=== PATIENT | female | born 1955 | race Caucasian/White ===

== ENCOUNTER 2021-04-10 19:10 | Inpatient (IN) ==
[2021-04-10] MEDS ORDERED: PANTOPRAZOLE 40 MG VIAL IV STA (19:33)
[2021-04-10] MEDS ORDERED: PIPERACILLIN/TAZOBACTAM 3,375 MG in SODIUM CHLORIDE 0.9% 100 ML IV STA (19:33)
[2021-04-10] MEDS ORDERED: SODIUM CHLORIDE 0.9% 1,000 ML IV STA ×2 (19:33→21:57)
[2021-04-10] MEDS ORDERED: ONDANSETRON 4 MG/2 ML VIAL IV STA (19:33)
[2021-04-10 20:01] LABS: Basophils % 0.1 % (0.0-0.8); Eosinophils % 0.2 % (0.00-10.9); Hematocrit 34.8 VOL% (35.7-47.0); Hemoglobin 11.5 GM/DL (12.0-16.0); Immature Granulocytes % 0.7 %; Immature Granulocytes Absolute 0.06 #; Lymphocytes # 0.3 10*3/uL (1.4-4.0); Lymphocytes % 3.5 % (21.3-54.2); Mean Corpuscular Volume 93.8 FL (87-102); Mean Platelet Volume 9.6 FL (9.6-12.0); Monocytes % 5.9 % (1.7-12.7); Neutrophils % 89.6 % (38.7-73.9); Platelet Count 110 T/CUMM (130-400); Red Blood Count 3.71 MC/CUMM (3.8-5.5); Red Cell Distribution Width 14.2 % (9.3-17.3); White Blood Count 8.1 T/CUMM (4-12)
[2021-04-10 20:12] LABS: Blood, Urine Negative (Negative); Glucose,Urine (UA) Negative (Negative); Ketones,Urine Negative (Negative); Mucus,Urine Occasional /LPF (Occasional); Nitrite,Urine Positive (Negative); Protein,Urine Negative; RBC,Urine 5 /HPF (0-4); Squamous Epithelial Cell,Urine Few /HPF (0-10); Urine Appearance CLEAR (Clear); Urine Color Amber (Yellow); Urine Specific Gravity 1.038 (1.001-1.035)
[2021-04-10 20:15] LABS: Bilirubin,Urine Small mg/dL (Negative)
[2021-04-10 20:19] LABS: Alanine Aminotransferase 200 U/L (13-56); Albumin 3.3 G/DL (3.4-5.0); Alkaline Phosphatase 157 U/L (45-117); Amylase 10 U/L (25-115); Aspartate Amino Transferase 220 U/L (0-37); Blood Urea Nitrogen 21 MG/DL (7-18); Calcium 9.6 MG/DL (8.5-10.1); Carbon Dioxide 24 MMOL/L (21-32); Estimated Glom Filtration Rate 66 ML/MIN; Glucose 87 MG/DL (74-106); Osmolality,Calculated 278.5 MOS/KG (273-304); Potassium 3.7 MMOL/L (3.5-5.1); Sodium 139 MMOL/L (136-145); Total Protein 6.7 G/DL (6.4-8.2)
[2021-04-10] MEDS ORDERED: MAGNESIUM SULF RIDER 2 GM/50 ML PREMIX IV STA (20:23)
[2021-04-10] MEDS ORDERED: NICOTINE 21 MG/24 HR PATCH TRANSDERM PRN (22:08)
[2021-04-10] MEDS ORDERED: GLUCAGON 1 MG VIAL IM PRN (22:08)
[2021-04-10] MEDS ORDERED: ONDANSETRON 4 MG/2 ML VIAL IV PRN (22:08)
[2021-04-10] MEDS ORDERED: guaiFENesin/DM ER 600-30 MG TABLET PO PRN (22:08)
[2021-04-10] MEDS ORDERED: ZALEPLON 5 MG CAPSULE PO PRN (22:08)
[2021-04-10] MEDS ORDERED: MORPHINE 4 MG/1 ML VIAL IV PRN (22:08)
[2021-04-10] MEDS ORDERED: DEXTROSE 50% 25 GM/50 ML VIAL IV PRN (22:08)
[2021-04-10] MEDS ORDERED: hydrALAZINE 20 MG/1 ML VIAL IV PRN (22:08)
[2021-04-10] MEDS ORDERED: PROMETHAZINE 25 MG/1 ML VIAL IM PRN (22:08)
[2021-04-10 23:44] LABS: Hepatitis B Core IgM Quant < 0.05 Index; Hepatitis B Surface Ag Quant < 0.10 Index; Hepatitis B Surface Ag Result Non-Reactive (NonReactive); Hepatitis C Virus Ab Result Non-Reactive (NonReactive)
[2021-04-11] MEDS: DEXT 5% NACL 0.9% KCL 20 MEQ 20 MEQ/1,000 ML BAG IV SCH (00:12)
[2021-04-11] MEDS: ALBUTEROL/IPRATROPIUM 3 ML NEB RESP TX SCH ×4 (00:21→20:21)
[2021-04-11] MEDS ORDERED: VANCOMYCIN INJ 1,000 MG in SODIUM CHLORIDE 0.9% 250 ML IV SCH (01:00)
[2021-04-11] MEDS: PIPERACILLIN/TAZOBACTAM 3,375 MG in SODIUM CHLORIDE 0.9% 100 ML IV SCH ×3 (04:35→20:12)
[2021-04-11 05:30] LABS: Eosinophils # 0.1 10*3/uL (0.0-0.87); Eosinophils % 1.6 % (0.00-10.9); Hematocrit 32.9 VOL% (35.7-47.0); Hemoglobin 10.7 GM/DL (12.0-16.0); Immature Granulocytes Absolute 0.05 #; Lymphocytes # 0.5 10*3/uL (1.4-4.0); Lymphocytes % 9.3 % (21.3-54.2); Mean Corpuscular HGB Conc 32.5 GM/DL (32-36); Mean Corpuscular Volume 95.6 FL (87-102); Mean Platelet Volume 10.1 FL (9.6-12.0); Monocytes % 5.7 % (1.7-12.7); Neutrophils % 82.4 % (38.7-73.9); Red Blood Count 3.44 MC/CUMM (3.8-5.5); Red Cell Distribution Width 14.4 % (9.3-17.3)
[2021-04-11 05:44] LABS: Platelet Count 93 T/CUMM (130-400); White Blood Count 5.1 T/CUMM (4-12)
[2021-04-11 05:46] LABS: Calcium 9.1 MG/DL (8.5-10.1); Potassium 3.4 MMOL/L (3.5-5.1)
[2021-04-11 05:55] LABS: Albumin 2.8 G/DL (3.4-5.0); Bilirubin,Direct 4.03 MG/DL (0.0-0.20); Bilirubin,Indirect 2.4 MG/DL (0.0-1.0); Bilirubin,Total 6.4 MG/DL (0.2-1.0); Total Protein 5.8 G/DL (6.4-8.2)
[2021-04-11 06:03] LABS: Hypochromasia Slight; Microcytosis Slight; Platelet Estimate Decreased
[2021-04-11] MEDS ORDERED: ENOXAPARIN 40 MG/0.4 ML SYRINGE SUBCUT SCH (09:00)
[2021-04-11] MEDS: PANTOPRAZOLE 40 MG VIAL IV SCH (09:53)
[2021-04-11] MEDS: ATORVASTATIN 10 MG TABLET PO SCH (09:56)
[2021-04-12] MEDS: ALBUTEROL/IPRATROPIUM 3 ML NEB RESP TX SCH ×4 (00:08→19:30)
[2021-04-12] MEDS: DEXT 5% NACL 0.9% KCL 20 MEQ 20 MEQ/1,000 ML BAG IV SCH (02:09)
[2021-04-12] MEDS: PIPERACILLIN/TAZOBACTAM 3,375 MG in SODIUM CHLORIDE 0.9% 100 ML IV SCH ×3 (04:06→21:59)
[2021-04-12 05:40] LABS: Basophils % 0.3 % (0.0-0.8); Eosinophils # 0.1 10*3/uL (0.0-0.87); Eosinophils % 3.2 % (0.00-10.9); Hematocrit 29.7 VOL% (35.7-47.0); Hemoglobin 9.8 GM/DL (12.0-16.0); Immature Granulocytes % 0.6 %; Immature Granulocytes Absolute 0.02 #; Lymphocytes # 0.5 10*3/uL (1.4-4.0); Lymphocytes % 14.9 % (21.3-54.2); Mean Corpuscular Volume 93.4 FL (87-102); Mean Platelet Volume 9.8 FL (9.6-12.0); Monocytes % 6.6 % (1.7-12.7); Neutrophils % 74.4 % (38.7-73.9); Red Blood Count 3.18 MC/CUMM (3.8-5.5); Red Cell Distribution Width 14.5 % (9.3-17.3)
[2021-04-12 05:49] LABS: INR 1.4; PT Patient Result 15.3 SECS (10.5-12.0); Platelet Count 81 T/CUMM (130-400); White Blood Count 3.5 T/CUMM (4-12)
[2021-04-12 05:57] LABS: Albumin 2.6 G/DL (3.4-5.0); Bilirubin,Total 5.6 MG/DL (0.2-1.0); Calcium 8.7 MG/DL (8.5-10.1); Osmolality,Calculated 282.1 MOS/KG (273-304); Potassium 3.5 MMOL/L (3.5-5.1)
[2021-04-12 06:29] LABS: Anisocytosis Slight; Macrocytosis Slight; Platelet Estimate Decreased
[2021-04-12] MEDS ORDERED: LACTATED RINGERS 1,000 ML IV SCH (08:00)
[2021-04-12] MEDS ORDERED: INDOMETHACIN SUPP 50 MG SUPP RECTAL ONE (08:00)
[2021-04-12] MEDS ORDERED: FAMOTIDINE 20 MG/2 ML VIAL IV ONE (08:41)
[2021-04-12] MEDS ORDERED: LIDOCAINE 2% 5 ML VIAL ONE (08:44)
[2021-04-12] MEDS ORDERED: ONDANSETRON 4 MG/2 ML VIAL ONE (08:44)
[2021-04-12] MEDS ORDERED: SUCCINYLCHOLINE 200 MG/10 ML VIAL ONE (08:44)
[2021-04-12] MEDS ORDERED: ROCURONIUM 50 MG/5 ML VIAL IV ONE (08:44)
[2021-04-12] MEDS ORDERED: fentaNYL 100 MCG/2 ML VIAL ONE (08:44)
[2021-04-12] MEDS ORDERED: MIDAZOLAM 2 MG/2 ML VIAL ONE (08:44)
[2021-04-12] MEDS ORDERED: propofoL 200 MG/20 ML VIAL IV ONE (08:44)
[2021-04-12] MEDS ORDERED: SEVOFLURANE 1 UNIT/15 MINUTE INH ONE (10:04)
[2021-04-12] MEDS: ATORVASTATIN 10 MG TABLET PO SCH (12:01)
[2021-04-12] MEDS: PANTOPRAZOLE 40 MG VIAL IV SCH (12:01)
[2021-04-13] MEDS: ALBUTEROL/IPRATROPIUM 3 ML NEB RESP TX SCH ×4 (00:10→20:01)
[2021-04-13] MEDS: DEXT 5% NACL 0.9% KCL 20 MEQ 20 MEQ/1,000 ML BAG IV SCH ×3 (05:35→09:15)
[2021-04-13] MEDS: PIPERACILLIN/TAZOBACTAM 3,375 MG in SODIUM CHLORIDE 0.9% 100 ML IV SCH ×3 (05:36→22:12)
[2021-04-13] MEDS ORDERED: MEPERIDINE 25 MG/1 ML VIAL IV PRN (06:28)
[2021-04-13] MEDS ORDERED: PROMETHAZINE INJ 25 MG in SODIUM CHLORIDE 0.9% 50 ML IV PRN (06:28)
[2021-04-13] MEDS ORDERED: ONDANSETRON 4 MG/2 ML VIAL IV PRN (06:28)
[2021-04-13] MEDS ORDERED: diphenhydrAMINE 50 MG/1 ML VIAL IV PRN (06:28)
[2021-04-13] MEDS ORDERED: LIDOCAINE 1%/EPI INJ 20 ML VIAL ONE (06:36)
[2021-04-13] MEDS ORDERED: TISSUE ADHESIVE 1 EACH APPLICATOR TOP ONE (06:36)
[2021-04-13] MEDS ORDERED: BUPIVACAINE MPF 0.25% 30 ML VIAL ONE (06:36)
[2021-04-13] MEDS ORDERED: SEVOFLURANE 1 UNIT/15 MINUTE INH ONE (06:51)
[2021-04-13] MEDS ORDERED: ROCURONIUM 50 MG/5 ML VIAL IV ONE (06:51)
[2021-04-13] MEDS ORDERED: MIDAZOLAM 2 MG/2 ML VIAL ONE (06:51)
[2021-04-13] MEDS ORDERED: ONDANSETRON 4 MG/2 ML VIAL ONE (06:51)
[2021-04-13] MEDS ORDERED: LIDOCAINE 2% 5 ML VIAL ONE (06:51)
[2021-04-13] MEDS ORDERED: KETOROLAC 30 MG/1 ML VIAL ONE (06:51)
[2021-04-13] MEDS ORDERED: DEXAMETHASONE 4 MG/1 ML VIAL ONE (06:51)
[2021-04-13] MEDS ORDERED: fentaNYL 100 MCG/2 ML VIAL ONE (06:51)
[2021-04-13] MEDS ORDERED: propofoL 200 MG/20 ML VIAL IV ONE (06:52)
[2021-04-13] MEDS ORDERED: INDOCYANINE GREEN 25 MG VIAL IV ONE (07:00)
[2021-04-13 07:04] LABS: Basophils % 0.3 % (0.0-0.8); Eosinophils # 0.2 10*3/uL (0.0-0.87); Hematocrit 30.7 VOL% (35.7-47.0); Hemoglobin 10.3 GM/DL (12.0-16.0); Immature Granulocytes % 1.8 %; Immature Granulocytes Absolute 0.07 #; Lymphocytes # 0.5 10*3/uL (1.4-4.0); Lymphocytes % 13.1 % (21.3-54.2); Mean Corpuscular HGB Conc 33.6 GM/DL (32-36); Mean Corpuscular Volume 93.6 FL (87-102); Mean Platelet Volume 9.8 FL (9.6-12.0); Monocytes % 6.8 % (1.7-12.7); Platelet Count 104 T/CUMM (130-400); Red Blood Count 3.28 MC/CUMM (3.8-5.5); Red Cell Distribution Width 14.6 % (9.3-17.3)
[2021-04-13 07:21] LABS: Calcium 8.6 MG/DL (8.5-10.1); Osmolality,Calculated 277.4 MOS/KG (273-304); Potassium 3.9 MMOL/L (3.5-5.1)
[2021-04-13] MEDS ORDERED: LACTATED RINGERS 1,000 ML IV ONE (07:53)
[2021-04-13] MEDS ORDERED: NEOSTIGMINE 10 MG/10 ML VIAL ONE (07:54)
[2021-04-13] MEDS ORDERED: GLYCOPYRROLATE 0.4 MG/2 ML VIAL ONE (07:54)
[2021-04-13] MEDS ORDERED: SUGAMMADEX 200 MG/2 ML VIAL IV ONE (08:26)
[2021-04-13] MEDS: HYDROmorphone 2 MG/1 ML VIAL IV PRN ×4 (08:50→09:05)
[2021-04-13] MEDS ORDERED: ALBUTEROL/IPRATROPIUM 3 ML NEB RESP TX ONE (09:11)
[2021-04-13] MEDS: PANTOPRAZOLE 40 MG VIAL IV SCH (09:45)
[2021-04-13] MEDS ORDERED: CYCLOBENZAPRINE 10 MG TABLET PO PRN (10:08)
[2021-04-13 10:13] LABS: Albumin 2.7 G/DL (3.4-5.0); Bilirubin,Direct 3.28 MG/DL (0.0-0.20); Bilirubin,Indirect 1.9 MG/DL (0.0-1.0); Bilirubin,Total 5.2 MG/DL (0.2-1.0); Total Protein 6.5 G/DL (6.4-8.2)
[2021-04-13] MEDS: ATORVASTATIN 10 MG TABLET PO SCH (10:16)
[2021-04-13] MEDS: amLODIPine 5 MG TABLET PO SCH (12:21)
[2021-04-14] MEDS: ALBUTEROL/IPRATROPIUM 3 ML NEB RESP TX SCH ×2 (00:47→07:27)
[2021-04-14] MEDS: DEXT 5% NACL 0.9% KCL 20 MEQ 20 MEQ/1,000 ML BAG IV SCH (05:14)
[2021-04-14] MEDS: PIPERACILLIN/TAZOBACTAM 3,375 MG in SODIUM CHLORIDE 0.9% 100 ML IV SCH (05:15)
[2021-04-14 07:54] LABS: Basophils % 0.2 % (0.0-0.8); Hematocrit 29.1 VOL% (35.7-47.0); Hemoglobin 9.6 GM/DL (12.0-16.0); Immature Granulocytes % 1.8 %; Lymphocytes # 0.4 10*3/uL (1.4-4.0); Lymphocytes % 7.6 % (21.3-54.2); Mean Corpuscular Volume 95.4 FL (87-102); Mean Platelet Volume 10.2 FL (9.6-12.0); Monocytes % 5.7 % (1.7-12.7); Neutrophils % 84.7 % (38.7-73.9); Platelet Count 114 T/CUMM (130-400); Red Blood Count 3.05 MC/CUMM (3.8-5.5); White Blood Count 5.6 T/CUMM (4-12)
[2021-04-14 08:05] LABS: Albumin 2.5 G/DL (3.4-5.0); Bilirubin,Total 2.8 MG/DL (0.2-1.0); Calcium 8.6 MG/DL (8.5-10.1); Osmolality,Calculated 287.8 MOS/KG (273-304); Potassium 3.6 MMOL/L (3.5-5.1); Total Protein 6.2 G/DL (6.4-8.2)
[2021-04-14 08:07] VITALS: BP 122/56
[2021-04-14] MEDS ORDERED: ENALAPRIL 20 MG TABLET PO SCH (09:00)
[2021-04-14] MEDS: PANTOPRAZOLE 40 MG VIAL IV SCH (09:04)
[2021-04-14] MEDS: ATORVASTATIN 10 MG TABLET PO SCH (09:05)
[2021-04-14] MEDS: amLODIPine 5 MG TABLET PO SCH (09:05)
== END 2021-04-14 13:21 | disposition home or self-care (01) | DRG 418 ==
LOC: N.ED 19:10 → N.EDINP 22:08 → N.5E 23:37
PROVIDERS: ADMIT Internal Medicine; ATTEND Internal Medicine
PROC: ERCPWSP (ICD-10-PCS; 2021-04-12 10:05)